=== PATIENT | male | born 1985 | race African-American/Black ===

== ENCOUNTER 2018-02-14 18:29 | Emergency (ER) | payer OTHER ==
[~2018-02-14] VITALS: Ht 193 cm; Wt 113.4 kg
[~2018-02-14 18:29] MED LIST: BACLOFEN 10MG T10 MG PO; BACLOFEN MC; CITRATE OF MAG296 ML PO; NAPROXEN DELAY500 M1 PO; NORCO 5-325 TA1 EACH PO; SENOKOT-S1 TA1 PO
[2018-02-14 18:42] LABS: URINE BILIRUBIN NEGATIVE (Negative); URINE BLOOD NEGATIVE (Negative); URINE CLARITY CLEAR; URINE COLOR YELLOW; URINE GLUCOSE-RANDOM* NEGATIVE (Negative); URINE KETONES NEGATIVE (Negative); URINE LEUKOCYTES-REFLEX NEGATIVE (Negative); URINE NITRITE-REFLEX NEGATIVE (Negative); URINE PROTEIN (DIPSTICK) NEGATIVE (Negative); URINE SPECIFIC GRAVITY >= 1.030 (1.005-1.035); URINE UROBILINOGEN 0.2 E.U./dl (0.2-1.0)
[2018-02-14 19:41] LABS: BASOPHILS 0.4 % (0.0-2.0); EOSINOPHILS 0.3 % (0.0-3.0); HEMATOCRIT 45.4 % (42.0-52.0); HEMOGLOBIN 14.9 gm/dL (14.0-18.0); MCH 28.7 pg (26.0-34.0); MCHC 32.8 g/dL (28.0-37.0); MCV 87.6 fL (80.0-100.0); MONOCYTES 4.9 % (1.0-8.0); PLATELET COUNT 230 thou/uL (150-400); POLYS 86.4 % (36.0-66.0); RBC 5.18 mil/uL (4.50-6.00); RDW 13.8 % (10.5-14.5); WBC 8.1 thou/uL (4.0-11.0)
[2018-02-14 19:48] LABS: CALCIUM 9.6 mg/dL (8.5-10.1); CREATININE 1.1 mg/dL (0.7-1.3); POTASSIUM 4.2 mmol/L (3.5-5.1)
[2018-02-14] MEDS ORDERED: ZOFRAN4 MG PO (20:00)
[2018-02-14 21:09] VITALS: BP 123/80
== END 2018-02-14 21:10 | disposition home or self-care (01) ==
LOC: ER 18:29
PROVIDERS: Student in an Organized Health Care Education/Training Program
DX: A08.4 Viral intestinal infection, unspecified (principal); Z88.0 Allergy status to penicillin